=== PATIENT | female | born 1945 | race Caucasian/White ===

== ENCOUNTER 2020-11-21 14:01 | Inpatient (IN) | payer MEDICARE, MEDICAID ==
[~2020-11-21] VITALS: Ht 152.4 cm; Wt 77.2 kg
[2020-11-21] MEDS ORDERED: heparin 10,000 units/1 ML INJ IV PRN (14:25)
[2020-11-21] MEDS: heparin 25,000 UNIT/250ml bag 250 ML IV SCH (14:35)
--- NOTE | 2020-11-21 14:37 | NUR ---
PER DEBBIE, WILL CONTINUE HEP GTT AT 12 U/KG/HR UNTIL 1800 (6 HRS FROM START). STARTED NOW WITH OUR PROTOCOL AND MEDS/TUBING
[2020-11-21 14:45] LABS: BASOPHILS # (AUTO) 0.1 X10'3 (0-0.2); BASOPHILS % (AUTO) 0.7 % (0-1); EOSINOPHILS # (AUTO) 0.2 X10'3 (0-0.9); EOSINOPHILS % (AUTO) 1.9 % (0-6); HEMATOCRIT 27.3 % (35.0-45.0); HEMOGLOBIN 8.9 g/dl (12.0-16.0); MEAN CORPUSCULAR HEMOGLOBIN 31.8 PG (27.0-31.0); MEAN CORPUSCULAR HGB CONC 32.6 g/dL (33.0-36.5); MEAN CORPUSCULAR VOLUME 97.4 FL (78-98); MEAN PLATELET VOLUME 7.3 FL (7.4-10.4); MONOCYTES # (AUTO) 1.5 X10'3 (0-0.9); MONOCYTES % (AUTO) 14.2 % (2-12); NEUTROPHILS # (AUTO) 7.8 X10'3 (1.8-7.7); NEUTROPHILS % (AUTO) 74.2 % (42-75); PLATELET COUNT 492 X10'3 (140-440); WHITE BLOOD COUNT 10.5 X10'3 (4.5-11.0)
[2020-11-21] MEDS ORDERED: potassium Cl 20 mEq SR tablet PO PRN ×2 (14:45)
[2020-11-21] MEDS ORDERED: magnesium 2GM in 50ml NS 50 ML IV PRN (14:45)
[2020-11-21] MEDS ORDERED: magnesium Cl slow-release 64mg tablet PO PRN (14:45)
[2020-11-21] MEDS ORDERED: HYDROcodone/acetaminophen 5mg/325mg tablet PO PRN (14:45)
[2020-11-21] MEDS ORDERED: potassium Cl 40MEQ/1/2NS 520ml 520 ML IV PRN ×2 (14:45)
[2020-11-21] MEDS ORDERED: acetaminophen 325mg tablet PO PRN (14:45)
[2020-11-21] MEDS ORDERED: magnesium 4gm in 100ml NS 100 ML IV PRN (14:45)
[2020-11-21] MEDS ORDERED: ondansetron/PF 4mg/2ml inj IV PRN (14:45)
[2020-11-21] MEDS ORDERED: morphine 2 MG/ML inj. syringe IV PRN (14:45)
[2020-11-21 15:03] LABS: ALANINE AMINOTRANSFERASE 32 U/L (12-78); ALBUMIN 3.2 G/DL (3.4-5.0); ALBUMIN/GLOBULIN RATIO 0.9 (1.1-1.5); ALKALINE PHOSPHATASE 82 IU/L (46-116); ANION GAP 10 (8-16); ASPARTATE AMINO TRANSFERASE 21 U/L (10-37); BILIRUBIN,TOTAL 0.5 MG/DL (0.1-1.0); BLOOD UREA NITROGEN 39 MG/DL (7-18); BUN/CREATININE RATIO 34.8 (6.6-38.0); CHLORIDE 100 MMOL/L (99-107); CREATININE 1.12 MG/DL (0.40-0.90); GLUCOSE 106 MG/DL (70-104); POTASSIUM 5.3 MMOL/L (3.5-5.1); SODIUM 133 MMOL/L (135-145); TOTAL CARBON DIOXIDE 23.4 MMOL/L (24-32); TOTAL PROTEIN 6.8 G/DL (6.4-8.2); eGFR 47 ML/MIN
[2020-11-21 15:09] LABS: MAGNESIUM 1.7 MG/DL (1.5-2.4)
--- NOTE | 2020-11-21 15:19 | NUR ---
DR LEWIS TOLD DR HENDRICKSON ABOUT NEW TROP RESULT OF 0.77
[2020-11-21 15:21] LABS: PARTIAL THROMBOPLASTIN TIME 118 SECONDS (22-32)
--- NOTE | 2020-11-21 15:29 | NUR ---
heparin gtt stopped now due to PTT, Dr. Alejandrina wu
--- NOTE | 2020-11-21 15:38 | NUR ---
Per Dr. Tinoco, will hold heparin infusion now, will get another pTT to verify and then go from there. Alejandrina wants stat echo, pg'ed now
--- NOTE | 2020-11-21 15:52 | NUR ---
SECOND IV STARTED W/OUT DIFFICULTY, PTT DRAWN WITH THAT STICK. ECHO AT BEDSIDE
[2020-11-21] MEDS ORDERED: OMEG-79 PO (15:58)
[2020-11-21] MEDS ORDERED: LORA-268 PO (15:58)
[2020-11-21] MEDS ORDERED: PRAV20TA4 PO (15:58)
[2020-11-21] MEDS ORDERED: MULT-1085 PO (15:58)
[2020-11-21] MEDS ORDERED: ASPI-611 PO (15:58)
[2020-11-21] MEDS ORDERED: OXYB5TAB16 PO (15:58)
[2020-11-21] MEDS ORDERED: OMEP-50 PO (15:58)
[2020-11-21] MEDS ORDERED: SITA100T11 PO (15:58)
[2020-11-21] MEDS ORDERED: ALBU8.5H8 INH (15:58)
[2020-11-21] MEDS ORDERED: LISI10TA27 PO (15:58)
[2020-11-21] MEDS ORDERED: NAPR-996 PO (15:58)
[2020-11-21] MEDS ORDERED: MELA5TAB12 PO (15:58)
[2020-11-21] MEDS ORDERED: DOCU-148 PO (15:58)
[2020-11-21] MEDS ORDERED: ASCO-134 PO (15:58)
[2020-11-21] MEDS ORDERED: METF-438 PO (15:58)
[2020-11-21 17:18] VITALS: BP 136/71
[2020-11-21 18:00] VITALS: BP 124/64
--- NOTE | 2020-11-21 18:33 | NUR ---
report received from MAYE Gonzalez
[2020-11-21] MEDS: K and/or MAG REPLACEMENT MC SCH (20:00)
[2020-11-21] MEDS: furosemide 40mg/4ml inj IV SCH (20:49)
[2020-11-21] MEDS: docusate sod 100mg capsule PO SCH (20:49)
[2020-11-21] MEDS ORDERED: temazepam 15mg capsule PO PRN (21:00)
[2020-11-21 22:00] VITALS: BP 99/54
--- NOTE | 2020-11-21 22:24 | NUR ---
TROP. 0.82 MD AWARE
--- NOTE | 2020-11-22 01:08 | NUR ---
PTT WHITIN THERAPEUTIC RANGE. NO CHANGE NEEDED.
[2020-11-22 03:30] LABS: EOSINOPHILS # (AUTO) 0.3 X10'3 (0-0.9); EOSINOPHILS % (AUTO) 3.4 % (0-6); HEMOGLOBIN 9.3 g/dl (12.0-16.0); MONOCYTES # (AUTO) 1.1 X10'3 (0-0.9); NEUTROPHILS # (AUTO) 6.8 X10'3 (1.8-7.7); RED BLOOD COUNT 2.87 X10'6 (4.20-5.60); RED CELL DISTRIBUTION WIDTH 17.5 % (11.5-14.5)
[2020-11-22 03:32] LABS: BASOPHILS % (AUTO) 0.5 % (0-1); HEMATOCRIT 27.5 % (35.0-45.0); LYMPHOCYTES # (AUTO) 1.1 X10'3 (1.1-4.8); LYMPHOCYTES % (AUTO) 11.7 % (21-51); MEAN CORPUSCULAR HEMOGLOBIN 32.5 PG (27.0-31.0); MEAN CORPUSCULAR HGB CONC 33.9 g/dL (33.0-36.5); MEAN CORPUSCULAR VOLUME 95.8 FL (78-98); MEAN PLATELET VOLUME 7.9 FL (7.4-10.4); MONOCYTES % (AUTO) 12.2 % (2-12); NEUTROPHILS % (AUTO) 72.2 % (42-75); PLATELET COUNT 489 X10'3 (140-440); WHITE BLOOD COUNT 9.4 X10'3 (4.5-11.0)
[2020-11-22 03:46] LABS: ALBUMIN 3.2 G/DL (3.4-5.0); ANION GAP 8 (8-16); BLOOD UREA NITROGEN 41 MG/DL (7-18); BUN/CREATININE RATIO 33.9 (6.6-38.0); CALCIUM 10.6 MG/DL (8.5-10.1); CHLORIDE 100 MMOL/L (99-107); CREATININE 1.21 MG/DL (0.40-0.90); GLUCOSE 136 MG/DL (70-104); MAGNESIUM 1.8 MG/DL (1.5-2.4); POTASSIUM 4.7 MMOL/L (3.5-5.1); SODIUM 133 MMOL/L (135-145); TOTAL CARBON DIOXIDE 24.7 MMOL/L (24-32); eGFR 43 ML/MIN
[2020-11-22 03:55] VITALS: BP 132/76
[2020-11-22 06:00] VITALS: BP 141/59
[2020-11-22] MEDS: K and/or MAG REPLACEMENT MC SCH (08:00)
[2020-11-22] MEDS: furosemide 40mg/4ml inj IV SCH (08:05)
[2020-11-22] MEDS: docusate sod 100mg capsule PO SCH (08:05)
[2020-11-22] MEDS: heparin 25,000 UNIT/250ml bag 250 ML IV SCH (13:00)
[2020-11-22] MEDS ORDERED: FURO-149 PO (14:52)
--- NOTE | 2020-11-22 16:00 | NUR ---
Spoke with patient's apartment leasing manager Wandy Rouse, rehabilitation case coordinator stated that patient does have cognitive ability to make informed choices. Reviewed discharge information, new medications, and lab results with rehabilitation case coordinator.
--- NOTE | 2020-11-22 17:59 | NUR ---
Patient is stable for discharge per MD orders. Reviewed Medicare Refusal form with both patient and caregiver Audre. Both agreed to discharge, caregiver state patient had cognative ablity to sign for her discharge documents, form signed by patient. All discharge instructions and new medications reviewed with both patient and caregiver Audre, all questions answered. New prescriptions sent to patient pharmacy. Caregiver Audre confirmed that prescriptions were received. PIV line, tele montior Addendum: 11/22/20 at 1808 by Lisa Cardoso RN PIV line and tele monitor removed, prior nitro patch also removed and chest cleaned with bath wipes. Patient cleaned and placed in new brief and gown. Confirmed with both patient and caregiver Audre that all belonging had been collected. Patient was wheeled to her assisted living vehicle and transported home
--- NOTE | 2020-11-23 09:12 | NUR ---
CASE MANAGEMENT DISCHARGE FOLLOW UP: After chart review, pt in assisted living with [facility], call not needed.
== END 2020-11-22 17:36 | disposition home or self-care (01) | DRG 282 ==
LOC: ER 14:01 → ED HOLD 15:38 → EDBEDREQ 16:11 → PCU 3S 16:33
PROVIDERS: ADMIT Internal Medicine; ATTEND Internal Medicine
DX: I11.0 Hypertensive heart disease with heart failure (principal); I21.A1 Myocardial infarction type 2; I50.23 Acute on chronic systolic (congestive) heart failure; I27.20 Pulmonary hypertension, unspecified; D53.9 Nutritional anemia, unspecified; Z86.16 Personal history of COVID-19; F03.90 Unspecified dementia, unspecified severity, without behavioral disturbance, psychotic disturbance, mood disturbance, and anxiety; I10 Essential (primary) hypertension
CPT/HCPCS: 36415; 71045; 80048; 80053; 82948; 83735; 83880; 84484; 85025; 85610; 85730; 87081; 93005; 93306; 93308; 93970; 96365; 99285; G0378; J1644; J1940